=== PATIENT | male | born 1965 | race Caucasian/White ===

== ENCOUNTER → 2020-02-18 14:04 | Outpatient (BNVA) | payer MEDICARE, SELFPAY | PROVIDERS: PCP Internal Medicine; Visit Provider Anesthesiology | DX: M51.36 Other intervertebral disc degeneration, lumbar region (principal); M47.816 Spondylosis without myelopathy or radiculopathy, lumbar region; M16.12 Unilateral primary osteoarthritis, left hip; Z98.890 Other specified postprocedural states | CPT/HCPCS: 99212 ==

== ENCOUNTER 2020-03-28 13:27 | Day surgery (SDC) | payer MEDICARE, SELFPAY ==
--- NOTE | 2020-03-27 12:36 | HO.ANESPROP2 ---
Documented by User: Krystle [email or web address] 03/27/20 12:40 HPI - Anesthesia Eval Consult details Narrative: 54yo M for Transforaminal Epidural Injection,left L5 - S1 s/p hip injection 12/2019 with [facility] Past Medical History Medical History Disc degeneration, lumbar Osteoarthritis of left hip Spondylosis of lumbar region without myelopathy or radiculopathy Social History Social History Smoking Status: Never smoker Use of substances other than those prescribed or required for medical reasons: No Advance Directives: No Advance Directives Information Provided: Yes Meds Allergies Allergy/AdvReac Type Severity Reaction Status Date / Time No Known Allergies Allergy Verified 02/18/20 14:32 Exam Exam Date and Time: March 27, 2020 1236 Assessment and Plan Assessment Anesthesia Assessment: Chart Reviewed Documented by User: Fabrizio Scott MD 03/28/20 13:59 [facility] Past Medical History Medical History Disc degeneration, lumbar Osteoarthritis of left hip Spondylosis of lumbar region without myelopathy or radiculopathy Social History Social History Smoking Status: Never smoker Use of substances other than those prescribed or required for medical reasons: No Advance Directives: No Advance Directives Information Provided: Yes Meds Allergies Allergy/AdvReac Type Severity Reaction Status Date / Time No Known Allergies Allergy Verified 02/18/20 14:32 Exam Airway Mallampati Class: II TM Dist: >3cm Neck ROM: Full Loose/Missing/Broken Teeth: No Assessment and Plan Assessment Anesthesia Assessment: Anesthesia Plan Discussed and Chart Reviewed Final Anesthetic Review NPO: Yes ASA Class: II Final Preanesthetic Review: No Changes in Pt Med Stat, Meds/Allgs Chart Reviewed, Consent Obtained/Reviewed and Anes Risks/Benef Reviewed Patient Risk: Low Procedure Risk: Low Anesthetic Plan Anesthetic Plan: MAC: Disposition: Standard PACU
[2020-03-28 13:32] VITALS: BMI 35.7
[2020-03-28 13:40] VITALS: BP 141/87; PULSE 89; RESP 18; TEMP 36.4; O2SAT 97
[2020-03-28] MEDS: Lactated Ringers 1,000 ML 100 ML IVCONT (13:43)
--- NOTE | 2020-03-28 14:03 | FL_ITS ---
EXAMINATION: FL INTRAOPERATIVE FLUOROSCOPY CLINICAL INFORMATION: L5-S1 transforaminal epidural injection. COMPARISON: None. TECHNIQUE: Fluoroscopy performed by Dr. Spears. Fluoroscopy time: 0.3 minutes DAP: 103 mGycm2 Images: 3 FINDINGS: Fluoroscopy was provided for use by Dr. Spears. A radiologist was not present during imaging. Today's dictation is only for administrative purposes to document intraoperative fluoroscopy. FL/FL guidance in OR IMPRESSION: Intraoperative fluoroscopy provided for use by Dr. Spears. Please see procedure note for detailed findings.
--- NOTE | 2020-03-28 14:03 | PM.OP ---
Brief Operative Note Date of Service: 03/28/20 Pre-op diagnosis: Disc degeneration lumbar Post-op diagnosis: same Procedure: Left transforaminal epidural steroid injection. Implants: None Surgeon: Scott Spears MD Anesthesia: MAC Estimated blood loss (mL): 0 Pathology: none sent Condition: stable Disposition: PACU
--- NOTE | 2020-03-28 14:04 | MHC.SHP ---
Pre-Procedural Eval Section A The patient is an INPATIENT: No The History & Physical has been completed within 30 days and I have reviewed it.: No Section B Chief Complaint: intervertebral disc degeneration,lumbar region Details of Present Illness: disc degeneration Lumbar Relevant Family History (Specify if Yes): No Relevant Social History: None Present Medications: see Short Stay Collaborative assessment Medical History: No relevant PMH History of Previous Operations: No relevant previous surgery Allergies: Allergies Allergy/AdvReac Type Severity Reaction Status Date / Time No Known Allergies Allergy Verified 02/18/20 14:32 Review of Systems Sugical H&P ROS: Negative: Cardiovascular, Respiratory, Neurological, Psychiatric, Hem-Onc, Allergic/Immunologic, Gastrointestinal, Genitourinary, Musculoskeletal, Integumentary, Endocrine and Eyes/Ears/Nose/Throat and Yes, Specify: Constitution (trivial obesity) Exam Surgical H&P Exam: Normal: HEENT, Normal: Heart, Normal: Lungs, Normal: Extremities, Normal: Abdomen, Normal: Skin and Normal: Neurological Plan Diagnosis/Plan: Unchanged Patient has been examined and remains a candidate for the planned procedure
--- NOTE | 2020-03-28 14:40 | PM.OP ---
Brief Operative Note Date of Service: 03/28/20 Pre-op diagnosis: disc degeneration lumbar Post-op diagnosis: same Procedure: LS1 TFESI Implants: none Surgeon: Scott Spears MD Anesthesia: MAC Estimated blood loss (mL): 0 IV fluids (mL): 600 Pathology: none sent Condition: stable Disposition: PACU
[2020-03-28 14:45] VITALS: BP 131/82; PULSE 67; RESP 14; TEMP 36.8; O2SAT 96
[2020-03-28] MEDS: Acetaminophen 325 MG TABLET 650 MG PO (14:52)
[2020-03-28 15:00] VITALS: BP 123/82; PULSE 85; RESP 16; O2SAT 97
--- NOTE | 2020-03-28 16:43 | W.PM.OPN ---
Operative Note Operative Note Date of Service: 03/28/20 Narrative: THE PATIENT CAME TO THE OPERATING ROOM AFTER OBTAINING INFORMED CONSENT. THE RISKS OF THE PROCEDURE WERE DELINEATED THE RISK OF BLEEDING INFECTION PERIPHERAL NERVE DAMAGE EPIDURAL HEMATOMA EPIDURAL ABSCESS AND OTHER UNSPECIFIED RISKS. THE PATIENT WAS POSITIONED PRONE ON THE OPERATING TABLE [employer] MONITORS WERE APPLIED AND PATIENT WAS MODERATELY SEDATED. TIME-OUT WAS OBTAINED DELINEATING CORRECT SIDE AND SITE OF THE PROCEDURE, PATIENT NAME AND DATE OF , NEED OF THE ANTIBIOTIC, RISK OF FIRE. LUMBAR AREA OF THE PATIENT WAS PREPPED WITH CHLORAPREP AND DRAPED WITH STERILE DRAPES, STERILELY DRAPED C-ARM WAS BROUGHT OVER THE OPERATING FIELD AND SQ PICTURE OF L5 VERTEBRA WAS DELINEATED ON THE SCREEN. C-ARM WAS TILTED 25? TO THE left SIDE AND PICTURE OF THE LEFT PEDICLE L5 VERTEBRA WAS OBTAINED ON THE SCREEN. 3 MM BELOW THE LOWEST POINT OF THE PEDICLE PROJECTION TO THE SKIN WAS CHOSEN A STARTING POINT OF THE INJECTION. 22 GAUGE 5 IN SPINAL NEEDLE WAS INSERTED THROUGH THE SKIN AND STARTED TO ADVANCE TO THE FORAMINA IN ANTERIOR POSTERIOR, OBLIQUE AND LATERAL VIEWS IN TUNNEL VISION FASHION. WHEN ON LATERAL VIEW THE NEEDLE ENTERED THE MOST POSTERIOR AND SUPERIOR PORTION OF THE FORAMINA INJECTION OF THE CONTRAST PERFORMED DELINEATING ANTERIOR EPIDURAL SPREAD OF THE CONTRAST. AFTER THAT TREATMENT SOLUTION CONTAINING 5 ML OF PRESERVATIVE-FREE LIDOCAINE 1% MIXED WITH KENALOG 60 MG WAS INJECTED INTO THE NEEDLE. UPON COMPLETION OF THE INJECTION THE NEEDLE WAS REMOVED AND STERILE DRESSING WAS APPLIED. PATIENT TOLERATED PROCEDURE WELL HE WAS AWAKEN TAKEN OUTSIDE OF THE OPERATING ROOM TO PACU WHERE HE RECOVERED UNEVENTFULLY. HE WENT HOME WITHOUT IMMEDIATE COMPLICATIONS.
== END 2020-03-28 15:14 | disposition home or self-care (01) ==
PROVIDERS: PCP Internal Medicine; Visit Provider Anesthesiology
PROC: (CPT 64483; principal; 2020-03-28 14:40)
DX: M51.36 Other intervertebral disc degeneration, lumbar region (principal); M47.816 Spondylosis without myelopathy or radiculopathy, lumbar region; M16.12 Unilateral primary osteoarthritis, left hip; F32.9 Major depressive disorder, single episode, unspecified; E78.00 Pure hypercholesterolemia, unspecified
CPT/HCPCS: 64483; J2250; J3010; J3300; Q9967

== ENCOUNTER → 2020-05-12 15:19 | Outpatient (BNVA) | payer MEDICARE, SELFPAY | PROVIDERS: PCP Internal Medicine; Visit Provider Anesthesiology | DX: M51.36 Other intervertebral disc degeneration, lumbar region (principal); M47.816 Spondylosis without myelopathy or radiculopathy, lumbar region; M16.12 Unilateral primary osteoarthritis, left hip | CPT/HCPCS: 99212 ==